=== PATIENT | male | born 1975 | race Two or more races ===

== ENCOUNTER → 2019-11-09 | Emergency (ER) | payer OTHER ==
[~2019-11-09] VITALS: Ht 172.7 cm; Wt 120.2 kg
[2019-11-09 04:20] VITALS: BP 112/74
== END | disposition home or self-care (01) ==
LOC: EDBD 01:12 → ER 01:21
DX: S02.85XA Fracture of orbit, unspecified, initial encounter for closed fracture (principal); W19.XXXA Unspecified fall, initial encounter; Y93.89 Activity, other specified; Y92.89 Other specified places as the place of occurrence of the external cause; Y99.8 Other external cause status
CPT/HCPCS: 70450; 70486; 71250; 72125; 74176; 93005